=== PATIENT | male | born 1960 | race Caucasian/White ===

== ENCOUNTER 2022-02-19 07:38 | Outpatient (REF) | payer BC, SELFPAY ==
[2022-02-19 11:34] LABS: MANUAL DIFF FLAG NO
[2022-02-19 11:46] LABS: Basophils Percent Auto 0.4 % (0-2); Eosinophils Absolute Auto 0.1 X10*3/uL (0.0-0.4); Eosinophils Percent Auto 3.1 % (0-4); Hematocrit 39.6 % (42.0-52.0); Hemoglobin 13.5 g/dl (14.0-18.0); Imm Gran Abs Auto 0.01 X10*3/uL (0.00-0.03); Imm Gran Pct Auto 0.2 % (0.0-0.4); Lymphocytes Absolute Auto 1.5 X10*3/uL (1.2-4.9); Lymphocytes Percent Auto 33.6 % (20-40); Mean Corpuscular HGB Conc 34.1 g/dl (31.0-36.0); Mean Corpuscular Hemoglobin 32.1 pg (27.0-33.0); Mean Corpuscular Volume 94.1 fL (80.0-98.0); Mean Platelet Volume 9.7 fL (9.4-12.4); Monocytes Absolute Auto 0.7 X10*3/uL (0.1-1.2); Neutrophils Absolute Auto 2.2 x10*3/uL (2.0-8.3); Neutrophils Percent Auto 47.7 % (45-73); Platelet Count 257 X10*3/uL (160-400); Red Blood Count 4.21 X10*6/uL (4.60-5.80); White Blood Count 4.5 X10*3/uL (4.8-10.8)
[2022-02-19 12:08] LABS: Estimated Average Glucose 100 mg/dL; Hemoglobin A1c % 5.1 %
[2022-02-19 12:36] LABS: Alanine Aminotransferase 29 U/L (0-40); Albumin Level 4.3 g/dL (3.5-5.0); Alkaline Phosphatase 67 U/L (39-117); Anion Gap 13 (12-20); Aspartate Amino Transferase 25 U/L (5-37); Bilirubin Total 1.1 mg/dL (0.0-1.0); Blood Urea Nitrogen 12 mg/dL (9-16); Calcium 9.4 mg/dL (8.4-10.2); Carbon Dioxide 26 mmol/L (22-29); Chloride 104 mmol/L (96-108); Cholesterol 178 mg/dL; Estimated Glomerular Filt Rate > 60; Glucose Random 98 mg/dL (60-115); HDL Cholesterol 58 mg/dL; LDL Cholesterol Calculated 108 mg/dl; Potassium 4.9 mmol/L (3.3-5.1); Sodium 138 mmol/L (135-145); Triglycerides 61 mg/dL
[2022-02-19 12:57] LABS: Prostate Specific Antigen 0.17 ng/mL (<0.05-4.0)
== END 2022-02-19 07:39 | disposition home or self-care (01) ==
LOC: HO.MANLDS 07:38
PROVIDERS: Visit Provider Physician Assistant
DX: Z00.00 Encounter for general adult medical examination without abnormal findings (principal); Z12.5 Encounter for screening for malignant neoplasm of prostate
CPT/HCPCS: 36415; 80053; 80061; 83036; 84153; 84443; 85025

== ENCOUNTER 2022-02-22 07:31 | Outpatient (REF) | payer BC, SELFPAY ==
[2022-02-22 11:48] LABS: Iron 136 mcg/dL (45-160); Percent Iron Saturation 43 % (15-50); Total Iron Binding Capacity 315 mcg/dL (228-428); Unsaturated Iron Binding 179 ug/dL
[2022-02-22 12:10] LABS: Vitamin B12 564 pg/mL (200-900)
== END 2022-02-22 07:32 | disposition home or self-care (01) ==
LOC: HO.MANLDS 07:31
PROVIDERS: Visit Provider Physician Assistant
DX: D64.9 Anemia, unspecified (principal)
CPT/HCPCS: 36415; 82607; 83540

== ENCOUNTER 2025-03-25 10:58 | Outpatient (REF) | payer MEDICARE, OTHER, SELFPAY ==
--- OUTSIDE RECORDS SUMMARY | 2025-03-25 13:13 | XMS_ITS | Encounter Summary ---
Author Organization [facility] Address [address] [place] [id number] Phone Care Team Providers Care Sequins Stringer Name Role Phone Devi, Aneesh A DO Primary Care Provider [phone] Bigda, Aneesh A DO Unavailable Bigda, Aneesh A DO Primary Care Provider [phone] Reason for Referral * MRI/CAT Scan - Closed Specialty Diagnoses / Procedures Referred By Contac t Referred To Contact Radiology Diagnoses Peripheral tear of medial meniscus, current injury, right knee, initial encounter Procedures MRI Knee (Right) Bridgette Sanchez PA Phone: tel: fax: Referral ID Status Reason Start Date Expiration Date Visits Re quested Visits Authorized [id number] Closed 02/20/2022 02/20/2023 1 1 Encounter Details Date Type Department Care Team (Latest Contact Info) Description 02/20/2022 Transcribe Orders Virtual Department [address] [place] [address] Bridgette Sanchez PA [address] [place] [address] [place] [address] Peripheral tear of medial meniscus, current injury, right knee, initial encounter (Primary Dx) Social History Tobacco Use Types Packs/Day Years Used Date Smoking Tobacco: Never Assessed Sex and Gender Information Value Date Recorded Sex Assigned at Not on file Legal Sex Male 9:50 PM EDT Gender Identity Not on file Sexual Orientation Not on file documented as of this encounter Plan of Treatment Not on file documented as of this encounter Results * MRI KNEE WITHOUT CONTRAST (RIGHT) (03/28/2022 2:53 PM EST) Anatomical Region Laterality Modality Knee Right Magnetic Resonan ce 03/28/2022 9:11 PM EST Impressions 03/28/2022 9:15 PM EST 1. Severe medial tibiofemoral compartment degenerative changes with extensive full-thickness cartilage loss and prominent subchondral marrow edema. Full- thickness radial tear of the posterior horn the medial meniscus. 2. Joint effusion with synovitis. Narrative 03/28/2022 9:15 PM EST MRI KNEE WITHOUT CONTRAST (RIGHT) TECHNIQUE: Multi-sequence, multi-planar MRI of the knee without intravenous contrast. COMPARISON: XR KNEE 4 OR MORE VIEWS (RIGHT) 2021- FINDINGS: Medial Compartment: There is a full-thickness radial tear at the posterior root attachment of the medial meniscus with resulting peripheral displacement of the medial meniscal body. There is extensive full-thickness cartilage loss involving the medial femoral condyle articular surface with subchondral sclerosis and prominent associated bone marrow edema. Reciprocal full-thickness cartilage loss and subchondral marrow edema is seen at the medial tibial plateau. Lateral Compartment: Degenerative tearing of the anterior horn the lateral meniscus. No full-thickness cartilage loss. Patellofemoral Compartment: Surface irregularity of the patellar articular cartilage with full-thickness fissuring at the medial patellar facet and underlying subchondral marrow edema. Tendons: Quadriceps, patellar, and popliteus tendons are intact. Ligaments: Cruciate ligaments are intact. There are stress changes the medial collateral ligament. The lateral collateral complex is intact. Bones: No fracture, osteonecrosis, or focal lesion. Joint: There is a moderate joint effusion with synovitis. A prominent focus of synovitis is seen in the intercondylar notch. There is edema of the gastrocnemius muscle which is likely muscle strain. Procedure Note Bao Klein MD - 03/28/2022 MRI KNEE WITHOUT CONTRAST (RIGHT) TECHNIQUE: Multi-sequence, multi-planar MRI of the knee withoutintravenous contrast. COMPARISON: XR KNEE 4 OR MORE VIEWS (RIGHT) 2021- FINDINGS: Medial Compartment: There is a full-thickness radial tear at the posteriorroot attachment of the medial meniscus with resulting peripheraldisplacement of the medial meniscal body. There is extensivefull-thickness cartilage loss involving the medial femoral condylearticular surface with subchondral sclerosis and prominent associated bonemarrow edema. Reciprocal full-thickness cartilage loss and subchondralmarrow edema is seen at the medial tibial plateau. Lateral Compartment: Degenerative tearing of the anterior horn the lateralmeniscus. No full-thickness cartilage loss. Patellofemoral Compartment: Surface irregularity of the patellar articularcartilage with full-thickness fissuring at the medial patellar facet andunderlying subchondral marrow edema. Tendons: Quadriceps, patellar, and popliteus tendons are intact. Ligaments: Cruciate ligaments are intact. There are stress changes themedial collateral ligament. The lateral collateral complex is intact. Bones: No fracture, osteonecrosis, or focal lesion. Joint: There is a moderate joint effusion with synovitis. A prominentfocus of synovitis is seen in the intercondylar notch. There is edema ofthe gastrocnemius muscle which is likely muscle strain. IMPRESSION: 1. Severe medial tibiofemoral compartment degenerative changes withextensive full-thickness cartilage loss and prominent subchondral marrowedema. Full- thickness radial tear of the posterior horn the medialmeniscus. 2. Joint effusion with synovitis. Bridgette FLORENTINO IMG MR EXTREMITY Final Resu lt documented in this encounter Visit Diagnoses Diagnosis Peripheral tear of medial meniscus, current injury, right knee, initial encounter- Primary Peripheral tear of medial meniscus, current injury, right knee, initial encounter documented in this encounter Care Teams Sequins Stringer Relationship Specialty Start Date End Date Aneesh Quinonez DO PCP - General Internal Medicine 08/01/21 10/06/24 Aneesh Quinonez DO [address] [place] [id number] PCP - General Internal Medicine 10/07/24 Aneesh Quinonez DO [address] [place] [address] Insurance Assigned Provider 01/26/22 08/24/22 documented as of this encounter Additional Source Comments The information contained in this document represents components of the legal health record. It is not the complete legal health record.[facility]
--- OUTSIDE RECORDS SUMMARY | 2025-03-25 13:13 | XMS_ITS | Encounter Summary ---
Author Organization [facility] Address [address] [place] [phone] Phone Care Team Providers Care Structural Analyst Name Role Phone Devi Aneesh Kaur DO Primary Care Provider [phone] Aneesh Quinonez DO Unavailable Aneesh Quinonez DO Primary Care Provider [phone] Encounter Details Date Type Department Care Team (Late st Contact Info) Description 02/20/2022 Procedure Pass [facility], [address] [address] Social History Tobacco Use Types Packs/Day Years Used Date Smoking Tobacco: Never Assessed Sex and Gender Information Value Date Recorded Sex Assigned at Not on file Legal Sex Male 9:50 PM EDT Gender Identity Not on file Sexual Orientation Not on file documented as of this encounter Plan of Treatment Not on file documented as of this encounter Visit Diagnoses Not on filedocumented in this encounter Care Teams Structural Analyst Relationship Specialty Start Date End Date Aneesh Quinonez DO PCP - General Internal Medicine 08/01/21 10/06/24 Aneesh Quinonez DO [address] [place] [id number] PCP - General Internal Medicine 10/07/24 Aneesh Quinonez DO [address] [place] [address] [email or web address] Insurance Assigned Provider 01/26/22 08/24/22 documented as of this encounter Additional Source Comments The information contained in this document represents components of the legal health record. It is not the complete legal health record.[facility]
--- OUTSIDE RECORDS SUMMARY | 2025-03-25 13:13 | XMS_ITS | Clinical Summary ---
Author Organization [facility] Address [address] [place] [phone] Phone Care Team Providers Care Freight Solicitor Name Role Phone Aneesh Quinonez Primary Care Provider [phone] Allergies No known active allergies Medications amoxicillin (AMOXIL) 500 MG capsule TAKE 4 CAPSULES BY MOUTH 1 HOUR BEFORE DENTAL 09/09/2024 Active traMADoL (ULTRAM) 50 mg tablet TAKE 1 TO 2 TABLETS BY MOUTH EVERY 6 HOURS NEEDED FOR MILD PAIN 07/09/2024 Active Active Problems No known active problems Social History Tobacco Use Types Packs/Day Years Used Date Smoking Tobacco: Never Smokeless Tobacco: Never Tobacco Cessation:Counseling Given: Not Answered Alcohol Use Standard Drinks/Week Comments Yes 14 (1 standard drink = 0.6 oz pu re alcohol) Rare Education Answer Date Recorded Are you interested in more education? Not on farhan e 09/13/2022 Are you concerned about learning? Not on file 09/13/2022 No 09/13/2022 No 09/13/2022 Digital Access Answer Date Recorded No 10/14/2022 No 10/14/2022 Reliable internet access at home? Not on file 10/14/2022 Device with a working camera? Not on file Sex and Gender Information Value Date Recorded Sex Assigned at Not on file Legal Sex Male 9:50 PM EDT Gender Identity Not on file Sexual Orientation Not on file Last Filed Vital Signs Vital Sign Reading Time Taken Comments Blood Pressure 108/62 10/12/2024 2:28 PM EDT Pulse 69 10/12/2024 2:28 PM EDT Temperature - - Respiratory Rate - - Oxygen Saturation 98% 10/12/2024 2:28 PM EDT Inhaled Oxygen Concentration - - Weight 76.2 kg (168 lb) 10/12/2024 2:28 PM EDT Height 177.8 cm (5' 10 ) 10/12/2024 2:28 PM EDT Body Mass Index 24.11 10/12/2024 2:28 PM EDT Plan of Treatment Health Maintenance Due Date Last Done Comments Adult Td,Tdap Booster 1958 DEPRESSION SCREENING 1970 HEPATITIS C SCREENING 1976 COLOGUARD 12/08/2003 COLONOSCOPY 12/08/2003 COLORECTAL CANCER SCREENING 12/08/2003 FIT TEST 12/08/2003 FOBT 12/08/2003 SIGMOIDOSCOPY 12/08/2003 VIRTUAL COLONOSCOPY 12/08/2003 PNEUMOCOCCAL VACCINES (50+ years) (1 of 1 - PCV) 2008 ZOSTER VACCINES (1 of 2) 2008 INFLUENZA VACCINE (#1) 2024 04/26/2021 COVID-19 VACCINE (5 - 2024- season) 2025 04/15/2022, 04/26/2021, 09/13/2020, Additional history exists LIPID PANEL 02/19/2027 02/19/2022 RSV VACCINE (1 - 1-dose 75+ series) 2033 SMOKING STATUS SCREENING (Once After 26 Yrs) Completed 10/12/2024 HEPATITIS A VACCINES Aged Out No long er eligible based on patient's age to complete this topic HIB VACCINES Aged Out No longer eligi ble based on patient's age to complete this topic MENINGOCOCCAL VACCINES (ACWY) Aged Out No longer eligible based on patient's age to complete this topic MENINGOCOCCAL VACCINES (B) Aged Out N o longer eligible based on patient's age to complete this topic Medical Devices Not on file Insurance MEDICARE PART A & B [facility] MEDICARE SUPPLEMENT MEDICARE PART A & B [facility] MEDICARE SUPPLEMENT MEDICARE PART A & B [employer] SUPPLEMENT MEDICARE PART A & B [facility] MEDICARE SUPPLEMENT MEDICARE PART A & B [employer] SUPPLEMENT MEDICARE PART A & B [employer] MEDICARE SUPPLEMENT Care Teams Freight Solicitor Relationship Specialty Start Date End Date Aneesh Quinonez DO [address] [place] [id number] [email or web address] PCP - General Internal Medicine 10/07/24 Additional Source Comments The information contained in this document represents components of the legal health record. It is not the complete legal health record.[facility]
[2025-03-25 13:18] LABS: MANUAL DIFF FLAG NO
[2025-03-25 13:35] LABS: Hemoglobin A1C 82.6279 umol/L; Total Hemoglobin (HGBA1C) 2424.3776 umol/L
[2025-03-25 13:40] LABS: Hematocrit 41.6 % (42.0-52.0); Hemoglobin 14.1 g/dl (14.0-18.0); Imm Gran Abs Auto 0.02 X10*3/uL (0.00-0.03); Imm Gran Pct Auto 0.4 % (0.0-0.4); Lymphocytes Absolute Auto 1.4 X10*3/uL (1.2-4.9); Mean Corpuscular HGB Conc 33.9 g/dl (31.0-36.0); Mean Corpuscular Hemoglobin 32.0 pg (27.0-33.0); Mean Corpuscular Volume 94.5 fL (80.0-98.0); NRBC Abs Auto 0.000 X10*3/uL (0.0-0.012); NRBC Pct Auto 0.0 /100WBC (0.0-0.2); Platelet Count 314 X10*3/uL (160-400); Red Blood Count 4.40 X10*6/uL (4.60-5.80); White Blood Count 5.4 X10*3/uL (4.8-10.8)
[2025-03-25 13:57] LABS: Alanine Aminotransferase 34 U/L (0-40); Albumin Level 4.8 g/dL (3.5-5.0); Alkaline Phosphatase 100 U/L (39-117); Anion Gap 12 (12-20); Aspartate Amino Transferase 26 U/L (5-37); Blood Urea Nitrogen 14 mg/dL (9-16); Calcium 9.3 mg/dL (8.4-10.2); Carbon Dioxide 26 mmol/L (22-29); Chloride 104 mmol/L (96-108); Cholesterol 206 mg/dL (<200); Estimated Glomerular Filt Rate > 60; HDL Cholesterol 71 mg/dL (>40); Potassium 4.9 mmol/L (3.3-5.1); Sodium 137 mmol/L (135-145); Total Protein 6.7 g/dL (6.5-8.0); Triglycerides 131 mg/dL (<150)
[2025-03-25 14:08] LABS: Prostate Specific Antigen 0.27 ng/mL (<0.05-4.0)
== END 2025-03-25 10:59 | disposition home or self-care (01) ==
LOC: HO.MANLDS 10:58
PROVIDERS: Visit Provider Physician Assistant
DX: Z00.00 Encounter for general adult medical examination without abnormal findings (principal); Z12.5 Encounter for screening for malignant neoplasm of prostate; Z13.6 Encounter for screening for cardiovascular disorders; Z13.1 Encounter for screening for diabetes mellitus
CPT/HCPCS: 36415; 80053; 80061; 83036; 84153; 85025